=== PATIENT | male | born 1960 | race African-American/Black ===

== ENCOUNTER → 2017-03-23 | Outpatient (CLI) | payer BC ==
[~2017-03-23] MED LIST: ALLOPURINOL300 M1 PO; ALPRAZOLAM0.5 M3 PO; AMLODIPINE BESY10 M1 PO; ATENOLOL100 MG PO; DORZOLAMIDE HYD10 M2 OP; NAPROSYN 500MG500 MG PO; VALSARTAN AND H1 TA1 PO; XALATAN 0.005%2.5 M1 OP
--- NOTE | 2017-03-24 08:14 | RADIOLOGY REPORT PS360 ---
CHEST(2 VIEWS-NOT PORTABLE) INDICATION: Preop COMPARISON: None FINDINGS: The lung alfaro are well expanded and appear clear of infiltrate. The cardiomediastinal silhouette and vascularity are normal. The costophrenic angles are clear. The bony thorax is normal. IMPRESSION: Normal chest.
== END ==
LOC: RAD 12:11
DX: Z01.818 Encounter for other preprocedural examination (principal)

== ENCOUNTER → 2017-03-27 | Outpatient (CLI) | payer BC | LOC: RT 09:32 | DX: Z01.818 Encounter for other preprocedural examination (principal) ==